=== PATIENT | female | born 1950 | race Caucasian/White ===

== ENCOUNTER 2018-07-06 17:48 | Emergency (ER) | payer MEDICARE ==
[2018-07-06] MEDS ORDERED: IPRATROPIUM/ALBUTEROL 0.5-2.5 MG/3 ML AMPUL NEB ONE (20:54)
--- NOTE | 2018-07-06 20:56 | ER Document Report ---
ED Medical Screen (RME) - General Chief Complaint: Chest Pain Stated Complaint: CHEST PAIN Time Seen by Provider: 07/06/18 20:53 Notes: 67-year-old female with a history of COPD, chief complaint of shortness of breath with feeling like she is having fever and chills for the past couple of days. Intermittent tightness across her chest with shortness of breath. Discharged on 06/19 from an admission for COPD exacerbation, completed medication s for this already. On as needed home oxygen. Visiting out of town. TRAVEL OUTSIDE OF THE [place] IN LAST 30 DAYS: No - Related Data Allergies/Adverse Reactions: Sulfa (Sulfonamide Antibiotics) Allergy (Verified 08/07/15 14:07) Past Medical History - Immunizations Immunizations up to date: No Hx Diphtheria, Pertussis, Tetanus Vaccination: No Physical Exam - Vital signs Vitals: Temp Pulse Resp BP Pulse Ox 99.3 F 97 22 H 124/56 L 93 07/06/18 18:02 07/06/18 18:02 07/06/18 18:02 07/06/18 18:02 07/06/18 18:02 - Respiratory Respiratory status: No respiratory distress Breath sounds: Other - There is good air movement throughout, minimal expiratory wheezes, no tachypnea, no respiratory distress, speaks in full sentences Course - Re-evaluation Re-evalutation: I have greeted and performed a rapid initial assessment of this patient. A comprehensive ED assessment and evaluation of the patient, analysis of test results and completion of the medical decision making process will be conducted by additional ED providers. - Vital Signs Vital signs: Temp Pulse Resp BP Pulse Ox 99.3 F 97 22 H 124/56 L 93 07/06/18 18:02 07/06/18 18:02 07/06/18 18:02 07/06/18 18:02 07/06/18 18:02
--- NOTE | 2018-07-06 20:57 | EKG REPORT ---
SEVERITY:- BORDERLINE ECG - SINUS RHYTHM BORDERLINE RIGHT AXIS DEVIATION BORDERLINE T ABNORMALITIES, ANT-LAT LEADS : Confirmed by: Mahnaz Unger MD 06-Jul-2018 20:56:58
[2018-07-06 21:34] LABS: ABSOLUTE EOSINOPHILS # (AUTO) 0.1 10^3/uL (0.0-0.6); ABSOLUTE LYMPHOCYTES (AUTO) 1.9 10^3/uL (0.5-4.7); ABSOLUTE MONOCYTES (AUTO) 0.6 10^3/uL (0.1-1.4); ABSOLUTE NEUT (AUTO) 4.5 10^3/uL (1.7-8.2); BASOPHILS % (AUTO) 0.5 % (0-2); EOSINOPHILS % (AUTO) 1.6 % (0-6); LYMPHOCYTES % (AUTO) 26.5 % (13-45); MEAN CORPUSCULAR HEMOGLOBIN 31.7 pg (27.0-33.4); MEAN CORPUSCULAR HGB CONC 34.3 g/dL (32.0-36.0); MEAN CORPUSCULAR VOLUME 92 fl (80-97); MONOCYTES % (AUTO) 7.9 % (3-13); PLATELET COUNT 223 10^3/uL (150-450); RED BLOOD COUNT 4.12 10^6/uL (3.72-5.28); RED CELL DISTRIBUTION WIDTH 12.9 % (11.5-14.0); SEGMENTED NEUTROPHILS % (AUTO) 63.5 % (42-78); TOTAL CELLS COUNTED % (AUTO) 100 %; WHITE BLOOD COUNT 7.1 10^3/uL (4.0-10.5)
[2018-07-06 21:36] LABS: VENOUS BLOOD BASE EXCESS -3.1 mmol/L; VENOUS BLOOD HCO3 23.6 mmol/L (20-32); VENOUS BLOOD PCO2 49.5 mmHg (35-63); VENOUS BLOOD PH 7.3 (7.30-7.42)
[2018-07-06 21:52] LABS: ANION GAP 10 (5-19); BLOOD UREA NITROGEN 17 mg/dL (7-20); CALCIUM 9.9 mg/dL (8.4-10.2); CARBON DIOXIDE 30 mmol/L (22-30); CHLORIDE 100 mmol/L (98-107); GLUCOSE 126 mg/dL (75-110); POTASSIUM 4.4 mmol/L (3.6-5.0); SODIUM 139.6 mmol/L (137-145)
--- NOTE | 2018-07-06 22:52 | RADIOLOGY REPORT (SQ) ---
EXAM DESCRIPTION: XR CHEST 1 VIEW COMPLETED DATE/TME: 07/06/2018 21:45 CLINICAL HISTORY: 67 years Female, shortness of breath COMPARISON: None. NUMBER OF VIEWS/TECHNIQUE: 1/AP FINDINGS: Adequate lung volume, clear parenchyma, normal cardiac silhouette, and intact bony thorax. Moderate dextroconvexity.Atherosclerotic vascular disease. IMPRESSION: No acute cardiopulmonary findings.
[2018-07-06] MEDS ORDERED: PREDNISONE 20 MG TABLET PO ONE (23:25)
--- NOTE | 2018-07-06 23:25 | ER Document Report ---
ED Respiratory Problem - General Chief Complaint: Chest Pain Stated Complaint: CHEST PAIN Time Seen by Provider: 07/06/18 20:53 Notes: Patient is a 67-year-old female with a history of COPD, chief complaint of shortness of breath with feeling like she is having fever and chills for the past couple of days. Intermittent tightness across her chest with shortness of breath. Discharged on 06/19 from an admission for COPD exacerbation, completed medications for this already. On as needed home oxygen. Visiting out of town. TRAVEL OUTSIDE OF THE [place] IN LAST 30 DAYS: No - Related Data Allergies/Adverse Reactions: Sulfa (Sulfonamide Antibiotics) Allergy (Verified 08/07/15 14:07) Past Medical History - General Information source: Patient - Social History Smoking Status: Never Smoker Chew tobacco use (# tins/day): No Frequency of alcohol use: Social Drug Abuse: None Lives with: Family Family History: Reviewed & Not Pertinent Patient has suicidal ideation: No Patient has homicidal ideation: No Pulmonary Medical History: Reports: Hx COPD Renal/ Medical History: Denies: Hx Peritoneal Dialysis - Immunizations Immunizations up to date: Yes Hx Diphtheria, Pertussis, Tetanus Vaccination: Yes Review of Systems - Review of Systems Constitutional: No symptoms reported EENT: No symptoms reported Cardiovascular: See HPI Respiratory: See HPI Gastrointestinal: No symptoms reported Genitourinary: No symptoms reported Female Genitourinary: No symptoms reported Musculoskeletal: No symptoms reported Skin: No symptoms reported Hematologic/Lymphatic: No symptoms reported Neurological/Psychological: No symptoms reported Physical Exam - Vital signs Vitals: Temp Pulse Resp BP Pulse Ox 99.3 F 97 22 H 124/56 L 93 07/06/18 18:02 07/06/18 18:02 07/06/18 18:02 07/06/18 18:02 07/06/18 18:02 - Notes Notes: GENERAL: Alert, interacts well. No acute distress. HEAD: Normocephalic, atraumatic. EYES: Pupils equal, round, and reactive to light. Extraocular movements intact. ENT: Oral mucosa moist, tongue midline. Oropharynx unremarkable. Airway patent. Nares patent, no nasal septal hematoma, TM's intact. NECK: Full range of motion. Supple. Trachea midline. LUNGS: Faint expiratory wheezes, good lung sounds otherwise, no tachypnea, no cough, no respiratory distress. HEART: Regular rate and rhythm. No murmur ABDOMEN: Soft, non-tender. Non-distended. Bowel sounds present in all 4 quadrants. GENITOURINARY: Deferred EXTREMITIES: Moves all 4 extremities spontaneously. No edema, normal radial and dorsalis pedis pulses bilaterally. No cyanosis. BACK: no cervical, thoracic, lumbar midline tenderness. No saddle anesthesia, normal distal neurovascular exam. NEUROLOGICAL: Alert and oriented x3. Normal speech. [cranial nerves II through XII grossly intact]. PSYCH: Normal affect, normal mood. SKIN: Warm, dry, normal turgor. No rashes or lesions noted. Course - Re-evaluation Re-evalutation: Patient was triaged by me, she approached me and asked if she could leave. I did review her x-ray, labs, troponin, EKG. There is no concerning acute finding. On initial evaluation she had very minimal wheezing with no tachypnea, signs of distress, or hypoxia. She has no current symptoms after a DuoNeb. She has oxygen at home and nebulizers. I discussed the workup in detail with patient, she states she is ready to leave. There is no indication of pneumonia, she will be placed on prednisone again for COPD exacerbation, instructed to use her inhalers and nebulizer, as directed return if she worsens in any way. Patient states understanding and agreement. - Vital Signs Vital signs: Temp Pulse Resp BP Pulse Ox 99.3 F 92 18 153/60 H 94 07/06/18 18:02 07/06/18 23:40 07/06/18 23:40 07/06/18 23:40 07/06/18 23:40 - Laboratory Result Diagrams: 07/06/18 21:10 07/06/18 21:10 Laboratory results interpreted by me: 07/06/18 21:10 Glucose 126 H Discharge - Discharge Clinical Impression: COPD exacerbation, Wheezing Condition: Stable Disposition: HOME, SELF-CARE Additional Instructions: Your chest x-ray is clear, your laboratory workup does not show any concerning N normalities. Your evaluation is consistent with a COPD exacerbation. Continue your nebulizer treatments, take prednisone as prescribed. Return if you worsen including difficulty breathing, fever, passing out, or any other concerning or worsening symptoms. Prescriptions: Prednisone [Deltasone 20 mg Tablet] 3 tab PO DAILY 5 Days tablet
[2018-07-07 02:52] VITALS: BP 153/60
== END 2018-07-06 23:40 | disposition home or self-care (01) ==
LOC: ER 17:48
DX: J44.1 Chronic obstructive pulmonary disease with (acute) exacerbation (principal); R07.89 Other chest pain; R06.02 Shortness of breath; Z88.2 Allergy status to sulfonamides
CPT/HCPCS: 93005; 94640; 99285; 36415; 87040; 85025; 80048; 84484; 82803; 71045; 93010; A9270 ×2; J7512; J7620